=== PATIENT | male | born 1985 | race Caucasian/White ===

== ENCOUNTER 2017-09-01 06:31 | Emergency (ER) | payer BC | END 2017-09-01 07:30 | disposition home or self-care (01) | LOC: SCSER 06:31 | DX: J11.83 Influenza due to unidentified influenza virus with otitis media (principal); H65.92 Unspecified nonsuppurative otitis media, left ear; F41.9 Anxiety disorder, unspecified; Z87.891 Personal history of nicotine dependence; Z79.899 Other long term (current) drug therapy | CPT/HCPCS: 99282 ==